=== PATIENT | female | born 1960 | race Caucasian/White ===

== ENCOUNTER 2024-04-24 15:09 | Outpatient (CLI) | payer MEDICARE, SELFPAY | END 2024-04-24 15:10 | disposition home or self-care (01) | LOC: AMB 04-26 20:41 | PROVIDERS: Visit Provider Emergency Medicine Emergency Medical Services | DX: S99.911A Unspecified injury of right ankle, initial encounter (principal); W19.XXXA Unspecified fall, initial encounter; Y92.009 Unspecified place in unspecified non-institutional (private) residence as the place of occurrence of the external cause | CPT/HCPCS: A0425; A0427 ==

== ENCOUNTER 2024-04-24 16:02 | Inpatient (IN) | payer MEDICARE, SELFPAY ==
[2024-04-24] VITALS (24 sets, daily range): BP systolic 99–128; BP diastolic 51–94; PULSE 96–112; RESP 18–28; TEMP 36.8–37.2; O2SAT 88–95; BMI 39.5
--- NOTE | 2024-04-24 16:49 | CRLHL7_ITS ---
For Patients: As a result of the Century Cures Act, medical imaging exams and procedure reports are released immediately into your electronic medical record. You may view this report before your referring provider. If you have questions, please contact your health care provider. Indication: Fall. Technique: Right ankle 3 views. Comparison: None. Findings: Bones: Alignment is normal. No fractures or bone lesions. Small posterior calcaneal enthesophyte. Joint spaces: No ankle joint effusion. The joint spaces are preserved Soft tissues: Diffuse soft tissue swelling about the ankle. Diffuse vascular calcifications. Impression: Diffuse soft tissue swelling about the ankle. No acute bony abnormality. Dictated by Jean-Claude Peoples MD @ 04/24/2024 7:46:50 PM (Electronically Signed)
--- NOTE | 2024-04-24 16:49 | CRLHL7_ITS ---
For Patients: As a result of the Century Cures Act, medical imaging exams and procedure reports are released immediately into your electronic medical record. You may view this report before your referring provider. If you have questions, please contact your health care provider. Indication: Fall. Technique: Right foot 3 views. Comparison: None. Findings: Bones: Alignment is normal. No fractures or bone lesions. Small posterior calcaneal enthesophyte. Joint spaces: Moderate degenerative changes of the navicular-medial cuboid articulation. No ankle joint effusion. Soft tissues: Dorsal foot soft tissue swelling. Diffuse vascular calcification. Impression: Dorsal foot soft tissue swelling. No acute bony abnormality. Dictated by Jean-Claude Peoples MD @ 04/24/2024 7:48:18 PM (Electronically Signed)
--- NOTE | 2024-04-24 16:49 | CRLHL7_ITS ---
For Patients: As a result of the Century Cures Act, medical imaging exams and procedure reports are released immediately into your electronic medical record. You may view this report before your referring provider. If you have questions, please contact your health care provider. INDICATION: Leg pain and swelling. TECHNIQUE: Ultrasound venous duplex lower right extremity. Compression venous exam was performed using burrell-scale, color Doppler, and spectral Doppler analysis. COMPARISON: None. FINDINGS: Deep veins: Sonographic imaging demonstrates the right common femoral, deep femoral, superficial femoral, popliteal, posterior tibial and the contralateral left common femoral veins to be fully compressible with normal color Doppler blood flow. Lack of compressibility and color Doppler flow in the peroneal veins indicative of deep venous thrombosis. Superficial veins: Greater saphenous vein is fully compressible. No popliteal cyst. IMPRESSION: DVT in the peroneal veins. Preliminary report communicated to Dr. Ochoa at 5:05 pm on 04/24/2024 by agricultural research technologist, LUIS. Dictated by Verena Sibley MD @ 04/24/2024 5:46:53 PM (Electronically Signed)
--- NOTE | 2024-04-24 17:10 | CRLHL7_ITS ---
For Patients: As a result of the Century Cures Act, medical imaging exams and procedure reports are released immediately into your electronic medical record. You may view this report before your referring provider. If you have questions, please contact your health care provider. INDICATION: Shortness of breath, right lower extremity DVT. TECHNIQUE: CT chest PE was acquired with 95 cc Isovue 370 IV contrast. COMPARISON: None. FINDINGS: Heart and vasculature: Contrast opacification of the pulmonary arterial tree is adequate. No sign of pulmonary embolism. Heart size is normal. Thoracic aorta and pulmonary artery are normal in caliber. Mitral annulus and aortic valve calcification. Coronary artery and thoracic aortic calcification. No pericardial effusion. Lungs and pleura: Moderate bilateral simple pleural effusions with associated passive atelectasis of the lower lobes, left greater than right. No pneumothorax. Small patchy ground-glass opacity in the left upper lobe centrally (). Lymph nodes/mediastinum: No mediastinal, hilar, or axillary adenopathy. Chest wall: No masses. Upper abdomen: No acute or significant findings. Bones: Multilevel thoracic spondylosis with flowing marginal osteophytes. No acute findings. IMPRESSION: 1. No pulmonary embolism. 2. Moderate bilateral simple pleural effusions with associated passive atelectasis. Difficult to exclude superimposed infection, in the correct clinical setting. 3. Small patchy ground-glass opacity ground-glass opacity in the central left upper lobe could represent additional pneumonitis. Please note that all CT scans at this facility use dose modulation, iterative reconstruction, and/or weight-based dosing when appropriate to reduce radiation dose to as low as reasonably achievable. Dictated by Jean-Claude Peoples MD @ 04/24/2024 7:33:24 PM (Electronically Signed)
--- NOTE | 2024-04-24 17:18 | CRLHL7_ITS ---
For Patients: As a result of the Century Cures Act, medical imaging exams and procedure reports are released immediately into your electronic medical record. You may view this report before your referring provider. If you have questions, please contact your health care provider. Indication : Altered mental status. Technique : CT of the brain without intravenous contrast. Comparison: None relevant available at the time of interpretation. Findings: No acute blurring of the burrell-white differentiation. There is no intracranial hemorrhage. The ventricles are proportionate to the cerebral sulci. The 4th ventricle is midline. Basal cisterns appear patent. No abnormal extra-axial fluid collection identified. Mild parenchymal volume loss. There is mild patchy periventricular hypodensity, favored to represent chronic ischemic microvascular disease. Empty expanded sella morphology. There is no intracranial mass, mass effect or midline shift identified. No depressed calvarial fracture. Impression: 1. No acute intracranial process. 2. Mild chronic ischemic microvascular disease. 3. Nonspecific empty expanded sella morphology. Please note that all CT scans at this facility use dose modulation, iterative reconstruction, and/or weight-based dosing when appropriate to reduce radiation dose to as low as reasonably achievable. Dictated by Db Moon MD @ 04/24/2024 7:26:04 PM (Electronically Signed)
[2024-04-24 17:24] LABS: HCO3 VBG 29 mmol/L (21-28); PCO2 VBG 44 mmHG (40-50); PO2 VBG < 30.1 mmHG (25-47)
[2024-04-24 17:26] LABS: Basophils Percent Auto 0.1 % (0.0-3.0); Hematocrit 38.7 % (33.0-51.0); Hemoglobin* 11.7 gm/dL (12.0-16.0); Immature Granulocytes Pct Auto 0.5 %; Lymphocytes Percent Auto 3.1 % (20-44); Mean Corpuscular HGB Conc 30 gm/dL (32-36); Mean Corpuscular Hemoglobin 23 pg (26-34); Mean Corpuscular Volume 76 fL (80-100); Monocytes Percent Auto 3.9 % (0.0-11.0); Neutrophils Percent Auto 92.4 % (42.0-72.0); Platelet Count* 208 K/uL (140-440); RDW Coefficient of Variation % 18.5 % (11.5-15.5); Red Blood Count 5.11 m/uL (4.00-5.20); White Blood Count* 17.99 K/uL (4.50-11.00)
--- NOTE | 2024-04-24 17:34 | ED.GENADULT ---
HPI - General Adult General Date Seen: 04/24/24 <Naveed Ochoa - Last Filed: 04/27/24 23:43> Chief complaint: Extremity Pain/Injury, Lower <Naveed Ochoa DO - Last Filed: 04/27/24 23:43> Stated complaint: Ankle injury <Naveed Ochoa - Last Filed: 04/27/24 23:43> Time Seen by Provider: 04/24/24 16:12 <Naveed Ochoa DO - Last Filed: 04/27/24 23:43> Source: patient <Naveed Ochoa DO - Last Filed: 04/27/24 23:43> Mode of arrival: EMS <Naveed Ochoa - Last Filed: 04/27/24 23:43> Limitations: no limitations <Naveed Ochoa - Last Filed: 04/27/24 23:43> History of Present Illness HPI narrative: Patient is a 63 year old female presenting to emergency department for multiple issues. Her main complaint and reason they called EMS because she fell and hurt her ankle. She is not sure how she fell or of the events that led up to her falling. This is 2nd time she fell in the past month with getting as super condyle left elbow fracture a month ago from a similar fall. She has also been having worsening shortness of breath now for the past few weeks it worse with the past few days. Her [id number] has been trying to get her to come to the emergency department but she has been refusing. Patient is a smoker now vapes but no history of COPD. No history of blood clots. She was post have surgery on her left elbow 2 weeks ago but they canceled the surgery so she can have her heart evaluated which they have not done yet as her appointment is scheduled for next week. She denies fevers, chills. She has most complaining about right ankle pain. She states the pain was there before the fall but now is worse. Denies chest pain, headache, weakness. Family does states she seems more confused today than her baseline. Patient is diabetic and has some neuropathy to the feet but states they are not fully numb. I spoke to her power of chief ophthalmic technician, Aida Espinosa, she states the patient had an echo that showed valvular issues and a normal stress test. Patient may need these valves replaced before she can have the elbow surgery. She also states that the patient has fallen 5 times over the past month and chronically has issues keeping her electrolytes stable. <Naveed Ochoa DO - Last Filed: 04/27/24 23:43> Related Data Allergies/adverse reactions: Allergies Allergy/AdvReac Type Severity Reaction Status Date / Time No Known Drug Allergies Allergy Verified 04/24/24 20:25 <Naveed Ochoa DO - Last Filed: 04/27/24 23:43> Review of Systems Status of ROS: Reports: 10 or more systems reviewed and unremarkable except as noted in History and below <Naveed Ochoa DO - Last Filed: 04/27/24 23:43> [facility] Medical History: Medical History (Updated 04/25/24 @ 00:11 by Margot Dukes MD) Supracondylar fracture of humerus ?S42.413A - Displaced simple supracondylar fracture without intercondylar fracture of unspecified humerus, initial encounter for closed fracture (ICD-10) Polycythemia vera ?D45 - Polycythemia vera (ICD-10) Hidradenitis suppurativa ?L73.2 - Hidradenitis suppurativa (ICD-10) Thyroid cancer ?C73 - Malignant neoplasm of thyroid gland (ICD-10) Type 2 diabetes mellitus ?E11.9 - Type 2 diabetes mellitus without complications (ICD-10) Bilateral pleural effusion ?J90 - Pleural effusion, not elsewhere classified (ICD-10) Morbid obesity ?E66.01 - Morbid (severe) obesity due to excess calories (ICD-10) Severe mitral valve stenosis ?I05.0 - Rheumatic mitral stenosis (ICD-10) Severe aortic stenosis ?I35.0 - Nonrheumatic aortic (valve) stenosis (ICD-10) <Naveed Ochoa DO - Last Filed: 04/27/24 23:43> Surgical History: Surgical History (Updated 04/24/24 @ 22:03 by Margot Dukes MD) Status post surgical removal of malignant neoplasm of skin ?Z98.890 - Other specified postprocedural states (ICD-10) History of tonsillectomy ?Z90.89 - Acquired absence of other organs (ICD-10) History of thyroidectomy ?E89.0 - Postprocedural hypothyroidism (ICD-10) S/P hip replacement ?Z96.649 - Presence of unspecified artificial hip joint (ICD-10) <Naveed Ochoa DO - Last Filed: 04/27/24 23:43> Social History: Social History What is your current living situation?: I presently have a place to live Problems where you live: no known problems Problems where you live details: NA In the past 12 months, utilities in danger of being shut off: no In past 12 months, lack of transportation kept you from medical appts, meetings, work, or getting things needed for daily living: yes In the past 12 mos, have been you worried that your food would run out before you had money to buy more?: never true In the past 12 mos, the food you bought just didn't last and you didn't have money to buy more?: never true Highest level of school completed/degree received: high school graduate Smoking Status: Former smoker Do you use any of these nicotine containing products: Vaping Products Second hand tobacco smoke exposure: No How often do you have a drink containing alcohol: never How often do you have six or more drinks on one occasion: Never AUDIT-C Alcohol total score: 0 Non-prescribed substance use: denies use Caffeine: Yes (1 Cup Coffee per day) How often does anyone, including family, friends and others, physically hurt you: never How often does anyone, including family, friends and others, insult or talk down to you: never How often does anyone, including family, friends and others, threaten you with harm: never How often does anyone, including family, friends and others, scream or curse at you: never service: No <Naveed Ochoa DO - Last Filed: 04/27/24 23:43> Exam Narrative: Exam Narrative: Const: Well-nourished, Well-developed, in moderate distress Eyes: PERRL, no conjunctival injection, and symmetrical lids HENT: Atraumatic external nose and ears. Moist mucous membranes. Neck: Symmetric, trachea midline, No thyromegaly. CVS: Tachycardic, No murmurs or gallops. Peripheral pulses 2+ and equal in all extremities RESP: Increased respiratory effort. Clear to auscultation bilaterally. GI: Nontender/Nondistended, No rebound or guarding. MSK:Extremities w/o deformity, Normal Active ROM, +1 right lower extremity pitting edema Skin: Warm, Dry. Erythemic right lower extremity with multiple lesions noted. He the grullon to the right heel that does not appear infected Neuro: Normal Muscle tone, No focal neurological deficits. Psych: Awake, Alert, & Oriented x3. Appropriate mood and affect. <Naveed Ochoa, DO - Last Filed: 04/27/24 23:43> Const: Vital Signs, click to edit/add: Vital Signs - 24 hr 04/24/24 16:15 04/24/24 16:30 04/24/24 16:46 Temperature 98.9 F Pulse Rate 112 H Pulse Rate [Right Pulse Oximeter] 109 H Respiratory Rate 20 Blood Pressure Blood Pressure [Ri ght Upper Arm] 110/75 Pulse Oximetry 88 95 88 Oxygen Delivery Me thod Room Air Nasal Cannula Room Air Oxygen Flow Rate 4 04/24/24 17:00 04/24/24 17:20 04/24/24 17:28 Temperature Pulse Rate 111 H 110 H 109 H Pulse Rate [Right Pulse Oximeter] Respiratory Rate Blood Pressure 99/79 Blood Pressure [Ri ght Upper Arm] Pulse Oximetry 95 93 93 Oxygen Delivery Me thod Nasal Cannula Nasal Cannula Nasal Cannula Oxygen Flow Rate 2 2 2 04/24/24 17:30 04/24/24 17:45 04/24/24 17:56 Temperature Pulse Rate 110 H 111 H 111 H Pulse Rate [Right Pulse Oximeter] Respiratory Rate Blood Pressure 109/51 L Blood Pressure [Ri ght Upper Arm] Pulse Oximetry 93 92 93 Oxygen Delivery Me thod Nasal Cannula Nasal Cannula Nasal Cannula Oxygen Flow Rate 2 2 2 04/24/24 18:01 04/24/24 18:15 04/24/24 19:02 Temperature Pulse Rate 111 H 110 H 110 H Pulse Rate [Right Pulse Oximeter] Respiratory Rate Blood Pressure 105/84 128/94 H Blood Pressure [Ri ght Upper Arm] Pulse Oximetry 91 93 93 Oxygen Delivery Me thod Nasal Cannula Nasal Cannula Nasal Cannula Oxygen Flow Rate 2 2 2 04/24/24 19:30 04/24/24 20:07 04/24/24 20:15 Temperature Pulse Rate 109 H 108 H Pulse Rate [Right Pulse Oximeter] Respiratory Rate 28 H Blood Pressure 107/57 L Blood Pressure [Ri ght Upper Arm] Pulse Oximetry 93 90 Oxygen Delivery Me thod Nasal Cannula Nasal Cannula Oxygen Flow Rate 2 2 04/24/24 20:15 Temperature Pulse Rate 108 H Pulse Rate [Right Pulse Oximeter] Respiratory Rate Blood Pressure Blood Pressure [Ri ght Upper Arm] Pulse Oximetry 92 Oxygen Delivery Me thod Nasal Cannula Oxygen Flow Rate 2 <Naveed Ochoa, DO - Last Filed: 04/27/24 23:43> Vital Signs, click to edit/add: Vital Signs - 24 hr 04/24/24 16:15 04/24/24 16:30 04/24/24 16:46 Temperature 98.9 F Pulse Rate 112 H Pulse Rate [Right Pulse Oximeter] 109 H Respiratory Rate 20 Blood Pressure Blood Pressure [Ri ght Upper Arm] 110/75 Pulse Oximetry 88 95 88 Oxygen Delivery Me thod Room Air Nasal Cannula Room Air Oxygen Flow Rate 4 04/24/24 17:00 04/24/24 17:20 04/24/24 17:28 Temperature Pulse Rate 111 H 110 H 109 H Pulse Rate [Right Pulse Oximeter] Respiratory Rate Blood Pressure 99/79 Blood Pressure [Ri ght Upper Arm] Pulse Oximetry 95 93 93 Oxygen Delivery Me thod Nasal Cannula Nasal Cannula Nasal Cannula Oxygen Flow Rate 2 2 2 04/24/24 17:30 04/24/24 17:45 04/24/24 17:56 Temperature Pulse Rate 110 H 111 H 111 H Pulse Rate [Right Pulse Oximeter] Respiratory Rate Blood Pressure 109/51 L Blood Pressure [Ri ght Upper Arm] Pulse Oximetry 93 92 93 Oxygen Delivery Me thod Nasal Cannula Nasal Cannula Nasal Cannula Oxygen Flow Rate 2 2 2 04/24/24 18:01 04/24/24 18:15 04/24/24 19:02 Temperature Pulse Rate 111 H 110 H 110 H Pulse Rate [Right Pulse Oximeter] Respiratory Rate Blood Pressure 105/84 128/94 H Blood Pressure [Ri ght Upper Arm] Pulse Oximetry 91 93 93 Oxygen Delivery Me thod Nasal Cannula Nasal Cannula Nasal Cannula Oxygen Flow Rate 2 2 2 04/24/24 19:30 04/24/24 20:07 04/24/24 20:15 Temperature Pulse Rate 109 H 108 H Pulse Rate [Right Pulse Oximeter] Respiratory Rate 28 H Blood Pressure 107/57 L Blood Pressure [Ri ght Upper Arm] Pulse Oximetry 93 90 Oxygen Delivery Me thod Nasal Cannula Nasal Cannula Oxygen Flow Rate 2 2 04/24/24 20:15 Temperature Pulse Rate 108 H Pulse Rate [Right Pulse Oximeter] Respiratory Rate Blood Pressure Blood Pressure [Ri ght Upper Arm] Pulse Oximetry 92 Oxygen Delivery Me thod Nasal Cannula Oxygen Flow Rate 2 <Mark Christianson MD - Last Filed: 04/24/24 20:40> Course Reevaluation(s) Reevaluation #1: Sammy - Received this patient at change of shift pending repeat troponin. Accepted for admission pending this result. Being admitted with respiratory failure. Concern also sepsis. Initial troponin I is 0.86 thought to be somewhat strain related with repeat then at 0.94. I would consider this essentially flat. Discussed with hospitalist for admission. Will treat more as potential sepsis. Discontinuing Rocephin pending blood cultures and initiating Zosyn <Mark Christianson MD - Last Filed: 04/24/24 20:40> Vital Signs Vital signs: Initial Vital Signs Temperature 98.9 F 04/24/24 16:15 Temperature Source Temporal Artery Scan 04/24/24 16:15 Pulse Rate 109 H 04/24/24 16:15 Respiratory Rate 20 04/24/24 16:15 Blood Pressure 110/75 04/24/24 16:15 Blood Pressure Mean 86 04/24/24 16:15 Blood Pressure Position Supine 04/24/24 16:15 Pulse Oximetry 88 04/24/24 16:15 Oxygen Delivery Method Room Air 04/24/24 16:15 Vital Signs Temperature 98.9 F 04/24/24 16:15 Pulse Rate 109 H 04/24/24 16:15 Respiratory Rate 20 04/24/24 16:15 Blood Pressure 110/75 04/24/24 16:15 Pulse Oximetry 88 04/24/24 16:15 Oxygen Delivery Method Room Air 04/24/24 16:15 Temperature 98.0 F 04/25/24 07:20 Pulse Rate 87 04/25/24 07:55 Respiratory Rate 18 04/25/24 07:36 Blood Pressure 126/54 L 04/25/24 08:15 Pulse Oximetry 94 04/25/24 07:36 Oxygen Delivery Method Nasal Cannula 04/25/24 07:36 Oxygen Flow Rate 2 04/25/24 07:36 <Naveed Ochoa DO - Last Filed: 04/27/24 23:43> Initial Vital Signs Temperature 98.9 F 04/24/24 16:15 Temperature Source Temporal Artery Scan 04/24/24 16:15 Pulse Rate 109 H 04/24/24 16:15 Respiratory Rate 20 04/24/24 16:15 Blood Pressure 110/75 04/24/24 16:15 Blood Pressure Mean 86 04/24/24 16:15 Blood Pressure Position Supine 04/24/24 16:15 Pulse Oximetry 88 04/24/24 16:15 Oxygen Delivery Method Room Air 04/24/24 16:15 Vital Signs Temperature 98.9 F 04/24/24 16:15 Pulse Rate 109 H 04/24/24 16:15 Respiratory Rate 20 04/24/24 16:15 Blood Pressure 110/75 04/24/24 16:15 Pulse Oximetry 88 04/24/24 16:15 Oxygen Delivery Method Room Air 04/24/24 16:15 Temperature 98.0 F 04/25/24 07:20 Pulse Rate 87 04/25/24 07:55 Respiratory Rate 18 04/25/24 07:36 Blood Pressure 126/54 L 04/25/24 08:15 Pulse Oximetry 94 04/25/24 07:36 Oxygen Delivery Method Nasal Cannula 04/25/24 07:36 Oxygen Flow Rate 2 04/25/24 07:36 <Mark Christianson MD - Last Filed: 04/24/24 20:40> Medications Administered Medications: Discontinued Medications Generic Name Dose Route Start Last Admin Trade Name Lara PRN Reason Stop Dose Admin Acetaminophen 975 mg 04/24/24 21:30 04/25/24 03:22 Acetaminophen 325 Mg Tablet PO 975 mg Q6H TOMI Administration Albuterol/Ipratropium 1 neb 04/24/24 22:00 04/25/24 03:38 Iprat-Albut 0.5-2.5 Mg/3 Ml Neb IH Not Given Q6H TOMI Sodium Chloride 1,000 mls @ 1,000 mls/hr 04/24/24 19:45 04/24/24 20:12 0.9 % Sodium Chloride 1000 Ml IV 04/24/24 20:44 1,000 mls/hr .Q1H TOMI Administration Piperacillin Sod/Tazobactam 100 mls @ 200 mls/hr 04/24/24 21:00 04/25/24 04:17 Sod 3.375 gm/ Sodium Chloride IVPB Infused Q6H TOMI Infusion Azithromycin 500 mg/ Sodium 255 mls @ 255 mls/hr 04/24/24 21:30 04/25/24 01:54 Chloride IVPB Infused Q24H TOMI Infusion Sodium Chloride 1,000 mls @ 125 mls/hr 04/24/24 21:03 04/25/24 08:06 0.9 % Sodium Chloride 1000 Ml IV 125 mls/hr .Q8H TOMI Administration Magnesium Sulfate 2 gm in 50 mls @ 25 mls/hr 04/24/24 21:03 04/24/24 22:03 Magnesium Iv IVPB 04/24/24 23:02 25 mls/hr ONCE ONE Administration Norepinephrine/Dextrose 4,000 mcg in 250 mls @ 44.565 mls/hr 04/25/24 08:01 04/25/24 08:13 Norepinephrine Infusion IV 0.1 mcg/kg/min CONT PRN 44.57 mls/hr Administration Protocol 0.1 MCG/KG/MIN Insulin Aspart 0 unit 04/24/24 21:03 04/25/24 08:03 Insulin Aspart 100 Unit/Ml SUBCUT Not Given ACHS [facility] Protocol Metoprolol Tartrate 2.5 mg 04/24/24 22:30 04/25/24 04:01 Metoprolol Tartrate 1 Mg/Ml Inj IVP Not Given Q6H TOMI Oxycodone HCl 5 mg 04/24/24 20:40 04/24/24 23:07 Oxycodone 5 Mg Tablet PO 5 mg Q4H PRN Administration pain, moderate 5-7 Rivaroxaban 15 mg 04/24/24 21:03 04/24/24 22:14 Rivaroxaban 10 Mg Tablet PO 05/15/24 09:01 15 mg BID TOMI Administration Sodium Chloride 5 ml 04/24/24 21:03 04/24/24 22:17 Sodium Chloride 0.9 % (Flush) 10 Ml Syringe IVF 5 ml BID TOMI Administration <Naveed Ochoa, - Last Filed: 04/27/24 23:43> Discontinued Medications Generic Name Dose Route Start Last Admin Trade Name Freq PRN Reason Stop Dose Admin Acetaminophen 975 mg 04/24/24 21:30 04/25/24 03:22 Acetaminophen 325 Mg Tablet PO 975 mg Q6H TOMI Administration Albuterol/Ipratropium 1 neb 04/24/24 22:00 04/25/24 03:38 Iprat-Albut 0.5-2.5 Mg/3 Ml Neb IH Not Given Q6H TOMI Sodium Chloride 1,000 mls @ 1,000 mls/hr 04/24/24 19:45 04/24/24 20:12 0.9 % Sodium Chloride 1000 Ml IV 04/24/24 20:44 1,000 mls/hr .Q1H TOMI Administration Piperacillin Sod/Tazobactam 100 mls @ 200 mls/hr 04/24/24 21:00 04/25/24 04:17 Sod 3.375 gm/ Sodium Chloride IVPB Infused Q6H TOMI Infusion Azithromycin 500 mg/ Sodium 255 mls @ 255 mls/hr 04/24/24 21:30 04/25/24 01:54 Chloride IVPB Infused Q24H TOMI Infusion Sodium Chloride 1,000 mls @ 125 mls/hr 04/24/24 21:03 04/25/24 08:06 0.9 % Sodium Chloride 1000 Ml IV 125 mls/hr .Q8H TOMI Administration Magnesium Sulfate 2 gm in 50 mls @ 25 mls/hr 04/24/24 21:03 04/24/24 22:03 Magnesium Iv IVPB 04/24/24 23:02 25 mls/hr ONCE ONE Administration Norepinephrine/Dextrose 4,000 mcg in 250 mls @ 44.565 mls/hr 04/25/24 08:01 04/25/24 08:13 Norepinephrine Infusion IV 0.1 mcg/kg/min CONT PRN 44.57 mls/hr Administration Protocol 0.1 MCG/KG/MIN Insulin Aspart 0 unit 04/24/24 21:03 04/25/24 08:03 Insulin Aspart 100 Unit/Ml SUBCUT Not Given ACHS [facility] Protocol Metoprolol Tartrate 2.5 mg 04/24/24 22:30 04/25/24 04:01 Metoprolol Tartrate 1 Mg/Ml Inj IVP Not Given Q6H TOMI Oxycodone HCl 5 mg 04/24/24 20:40 04/24/24 23:07 Oxycodone 5 Mg Tablet PO 5 mg Q4H PRN Administration pain, moderate 5-7 Rivaroxaban 15 mg 04/24/24 21:03 04/24/24 22:14 Rivaroxaban 10 Mg Tablet PO 05/15/24 09:01 15 mg BID TOMI Administration Sodium Chloride 5 ml 04/24/24 21:03 04/24/24 22:17 Sodium Chloride 0.9 % (Flush) 10 Ml Syringe IVF 5 ml BID TOMI Administration <Mark Christianson MD - Last Filed: 04/24/24 20:40> Medical Decision Making MDM Narrative Medical decision making narrative: Patient is a 63-year-old female presenting to the emergency department issue for ankle pain but she is rather complex for multiple other reasons. She is hypoxic on room air which is abnormal for her. She is also having swelling and erythema to the right lower extremity and is warm to the touch. There is concerned for either a blood clot or cellulitis at this time. Considering this and hypoxia I am also concerned about a PE. I was able to review her charts and she had a stress test done on 04/14/2024 that shows a normal stress test. She had an echo done on 04/15/24 that showed an EF of 65-70%, severe left atrial enlargement, moderate to severe mitral valve stenosis, severe aortic stenosis. I also do an EKG, troponin, D-dimer, COVID/flu/RSV, magnesium, BNP, VBG, CBC, CMP. As she is relatively tachycardic by will also do a lactate and blood cultures. Patient's lactate came back at 3.0. This could be signs of infection but could also be related to her hypoxia. Will monitor. Ultrasound the right lower extremity returned and shows a DVT in the peroneal veins. I am still concerned about a PE and I will do a CTA. D-dimer came back elevated as expected. VBG showed no concerning abnormalities and COVID/flu/RSV showed no concerning abnormalities. CBC returned with a white count of 17.99. This could be a stress reaction or could be from an infection. I am unsure where this infection be right now but possibility includes pneumonia. I am hesitant to give her fluids at this time as her blood pressures are stable and I am concerned she has a PE and I will do not want to put her into volume overload worsening her shortness of breath. Will wait for fluid decision until CTA is done and read. CMP shows no concerning abnormalities. Bilirubin slightly elevated 1.8. BNP is elevated at 8400. Her troponin is 0.87. She is not having any chest pain and not see signs of STEMI on her EKG. Seems unlikely that this is any kind of blockage in the heart as she does had a normal stress test a week ago. Most likely this is demand ischemia from her hypoxia. CT scan of the head returned showing no concerning abnormalities. CTA of the chest she shows bilateral simple small pleural effusions and associated atelectasis and a possible pneumonitis. No obvious signs of infection. No signs of a blood clot or heart strain. At this time now I will give her L of fluids. I am still hesitant to give her the fall 30 mL per kilos of fluid per sepsis protocol as is she does have that aortic and mitral valve stenosis and already has fluid on her heart. Rocephin was given for possible pneumonia. She also might infected from cellulitis. <Naveed Ochoa, DO - Last Filed: 04/27/24 23:43> Lab Data Labs: Lab Results 04/24/24 04/24/24 04/24/24 Range/Units 16:49 17:19 19:35 WBC 17.99 H (4.50-11.00) K/uL RBC 5.11 (4.00-5.20) m/uL Hgb 11.7 L (12.0-16.0) gm/dL Hct 38.7 (33.0-51.0) % MCV 76 L (80-100) fL MCH 23 L (26-34) pg MCHC 30 L (32-36) gm/dL RDW Coeff of Jorge Luis 18.5 H (11.5-15.5) % Plt Count 208 (140-440) K/uL Neut % (Auto) 92.4 H (42.0-72.0) % Lymph % (Auto) 3.1 L (20-44) % Pershing % (Auto) 3.9 (0.0-11.0) % Eos % (Auto) 0.0 (0.0-7.0) % Baso % (Auto) 0.1 (0.0-3.0) % Neut # (Auto) 16.60 H (1.7-7.0) K/uL Lymph # (Auto) 0.60 L (0.90-2.90) K/uL Pershing # (Auto) 0.70 (0.00-0.90) K/UL Eos # (Auto) 0.00 (0.00-0.50) K/uL Baso # (Auto) 0.00 (0.00-0.30) K/uL Abs Immat Gran (auto) 0.10 (0.00-0.30) K/uL Imm/Tot Granulo (auto) 0.5 % INR 1.14 H (0.91-1.10) D-Dimer Quant (PE/DVT) 2.60 H (0.00-0.50) ug/ml VBG pH 7.420 (7.32-7.43) VBG pCO2 44 (40-50) mmHG VBG pO2 < 30.1 (25-47) mmHG VBG HCO3 29 H (21-28) mmol/L Sodium 131 L (135-149) mmol/L Potassium 4.4 (3.6-5.1) mmol/L Chloride 95 L (96-114) mmol/L Carbon Dioxide 29 (20-32) mmol/L Anion Gap 7 (7-15) mEq/L BUN 26 (7-30) mg/dL Creatinine 1.1 (0.5-1.5) mg/dL Estimated GFR 56 ml/min Glucose 236 H (60-115) mg/dL Hemoglobin A1c 8.8 H (0-5.6) % Lactate 3.0 H 2.6 H (0.5-1.9) mmol/L Calcium 8.9 (8.4-10.6) mg/dL Magnesium 1.5 (1.5-2.6) mg/dL Iron 29 L (37-170) ug/dL TIBC 384 (265-497) ug/dL % Saturation 8 L (20-50) % Total Bilirubin 1.8 H (0.1-1.5) mg/dL AST 44 H (12-35) U/L ALT 27 (4-35) U/L Alkaline Phosphatase 114 (40-150) U/L Troponin I 0.87 H* (0.01-0.04) ng/mL C-Reactive Protein 20.8 H (0.5-1.0) mg/dL NT-Pro-B Natriuret Pep 8400 pg/mL Total Protein 8.0 (6.0-8.3) g/dL Albumin 4.0 (3.3-5.0) g/dL TSH 16.600 H (0.270-4.20) uIU/mL Free T4 0.44 L (0.70-1.85) ng/dL Prolactin Baseline 7.0 (2.8-29.2) ng/mL Urine Color (Yellow) Urine Appearance (Clear) Urine pH (5.0-8.5) Ur Specific [place] (1.000-1.030) Urine Protein (Negative) Urine Glucose (UA) (Negative) Urine Ketones (Negative) Urine Blood (Negative) Urine Nitrite (Negative) Urine Bilirubin (Negative) Urine Urobilinogen (0.2-1.0) Ur Leukocyte Esterase (Negative) Urine RBC (0-2) Urine WBC (0-5) Ur Squamous Epith Cells (None-Few) Urine Bacteria (None) SARS-CoV-2 (PCR) Negative SARS-CoV-2 (Negative) Influenza Type A (PCR) Negative PCR FLU A (Negative) Influenza Type B (PCR) Negative PCR FLU B (Negative) RSV (PCR) Negative PCR RSV (Negative) Lab Acknowledgement 04/24/24 04/24/24 04/24/24 Range/Units 19:43 20:15 20:28 WBC (4.50-11.00) K/uL RBC (4.00-5.20) m/uL Hgb (12.0-16.0) gm/dL Hct (33.0-51.0) % MCV (80-100) fL MCH (26-34) pg MCHC (32-36) gm/dL RDW Coeff of Jorge Luis (11.5-15.5) % Plt Count (140-440) K/uL Neut % (Auto) (42.0-72.0) % Lymph % (Auto) (20-44) % Pershing % (Auto) (0.0-11.0) % Eos % (Auto) (0.0-7.0) % Baso % (Auto) (0.0-3.0) % Neut # (Auto) (1.7-7.0) K/uL Lymph # (Auto) (0.90-2.90) K/uL Pershing # (Auto) (0.00-0.90) K/UL Eos # (Auto) (0.00-0.50) K/uL Baso # (Auto) (0.00-0.30) K/uL Abs Immat Gran (auto) (0.00-0.30) K/uL Imm/Tot Granulo (auto) % INR (0.91-1.10) D-Dimer Quant (PE/DVT) (0.00-0.50) ug/ml VBG pH (7.32-7.43) VBG pCO2 (40-50) mmHG VBG pO2 (25-47) mmHG VBG HCO3 (21-28) mmol/L Sodium (135-149) mmol/L Potassium (3.6-5.1) mmol/L Chloride (96-114) mmol/L Carbon Dioxide (20-32) mmol/L Anion Gap (7-15) mEq/L BUN (7-30) mg/dL Creatinine (0.5-1.5) mg/dL Estimated GFR ml/min Glucose (60-115) mg/dL Hemoglobin A1c (0-5.6) % Lactate (0.5-1.9) mmol/L Calcium (8.4-10.6) mg/dL Magnesium (1.5-2.6) mg/dL Iron (37-170) ug/dL TIBC (265-497) ug/dL % Saturation (20-50) % Total Bilirubin (0.1-1.5) mg/dL AST (12-35) U/L ALT (4-35) U/L Alkaline Phosphatase (40-150) U/L Troponin I 0.94 H* (0.01-0.04) ng/mL C-Reactive Protein (0.5-1.0) mg/dL NT-Pro-B Natriuret Pep pg/mL Total Protein (6.0-8.3) g/dL Albumin (3.3-5.0) g/dL TSH (0.270-4.20) uIU/mL Free T4 (0.70-1.85) ng/dL Prolactin Baseline (2.8-29.2) ng/mL Urine Color Yellow (Yellow) Urine Appearance Clear (Clear) Urine pH 5.5 (5.0-8.5) Ur Specific [place] 1.020 (1.000-1.030) Urine Protein 2+ A (Negative) Urine Glucose (UA) Negative (Negative) Urine Ketones Negative (Negative) Urine Blood 2+ A (Negative) Urine Nitrite Negative (Negative) Urine Bilirubin Negative (Negative) Urine Urobilinogen 1.0 (0.2-1.0) Ur Leukocyte Esterase Negative (Negative) Urine RBC 0-2 (0-2) Urine WBC 0-2 (0-5) Ur Squamous Epith Cells Few (None-Few) Urine Bacteria Few A (None) SARS-CoV-2 (PCR) (Negative) Influenza Type A (PCR) (Negative) Influenza Type B (PCR) (Negative) RSV (PCR) (Negative) Lab Acknowledgement Test Added <Naveed Ochoa, - Last Filed: 04/27/24 23:43> Lab Results 04/24/24 04/24/24 04/24/24 Range/Units 16:49 17:19 19:35 WBC 17.99 H (4.50-11.00) K/uL RBC 5.11 (4.00-5.20) m/uL Hgb 11.7 L (12.0-16.0) gm/dL Hct 38.7 (33.0-51.0) % MCV 76 L (80-100) fL MCH 23 L (26-34) pg MCHC 30 L (32-36) gm/dL RDW Coeff of Jorge Luis 18.5 H (11.5-15.5) % Plt Count 208 (140-440) K/uL Neut % (Auto) 92.4 H (42.0-72.0) % Lymph % (Auto) 3.1 L (20-44) % Pershing % (Auto) 3.9 (0.0-11.0) % Eos % (Auto) 0.0 (0.0-7.0) % Baso % (Auto) 0.1 (0.0-3.0) % Neut # (Auto) 16.60 H (1.7-7.0) K/uL Lymph # (Auto) 0.60 L (0.90-2.90) K/uL Pershing # (Auto) 0.70 (0.00-0.90) K/UL Eos # (Auto) 0.00 (0.00-0.50) K/uL Baso # (Auto) 0.00 (0.00-0.30) K/uL Abs Immat Gran (auto) 0.10 (0.00-0.30) K/uL Imm/Tot Granulo (auto) 0.5 % INR 1.14 H (0.91-1.10) D-Dimer Quant (PE/DVT) 2.60 H (0.00-0.50) ug/ml VBG pH 7.420 (7.32-7.43) VBG pCO2 44 (40-50) mmHG VBG pO2 < 30.1 (25-47) mmHG VBG HCO3 29 H (21-28) mmol/L Sodium 131 L (135-149) mmol/L Potassium 4.4 (3.6-5.1) mmol/L Chloride 95 L (96-114) mmol/L Carbon Dioxide 29 (20-32) mmol/L Anion Gap 7 (7-15) mEq/L BUN 26 (7-30) mg/dL Creatinine 1.1 (0.5-1.5) mg/dL Estimated GFR 56 ml/min Glucose 236 H (60-115) mg/dL Hemoglobin A1c 8.8 H (0-5.6) % Lactate 3.0 H 2.6 H (0.5-1.9) mmol/L Calcium 8.9 (8.4-10.6) mg/dL Magnesium 1.5 (1.5-2.6) mg/dL Iron 29 L (37-170) ug/dL TIBC 384 (265-497) ug/dL % Saturation 8 L (20-50) % Total Bilirubin 1.8 H (0.1-1.5) mg/dL AST 44 H (12-35) U/L ALT 27 (4-35) U/L Alkaline Phosphatase 114 (40-150) U/L Troponin I 0.87 H* (0.01-0.04) ng/mL C-Reactive Protein 20.8 H (0.5-1.0) mg/dL NT-Pro-B Natriuret Pep 8400 pg/mL Total Protein 8.0 (6.0-8.3) g/dL Albumin 4.0 (3.3-5.0) g/dL TSH 16.600 H (0.270-4.20) uIU/mL Free T4 0.44 L (0.70-1.85) ng/dL Prolactin Baseline 7.0 (2.8-29.2) ng/mL Urine Color (Yellow) Urine Appearance (Clear) Urine pH (5.0-8.5) Ur Specific [place] (1.000-1.030) Urine Protein (Negative) Urine Glucose (UA) (Negative) Urine Ketones (Negative) Urine Blood (Negative) Urine Nitrite (Negative) Urine Bilirubin (Negative) Urine Urobilinogen (0.2-1.0) Ur Leukocyte Esterase (Negative) Urine RBC (0-2) Urine WBC (0-5) Ur Squamous Epith Cells (None-Few) Urine Bacteria (None) SARS-CoV-2 (PCR) Negative SARS-CoV-2 (Negative) Influenza Type A (PCR) Negative PCR FLU A (Negative) Influenza Type B (PCR) Negative PCR FLU B (Negative) RSV (PCR) Negative PCR RSV (Negative) Lab Acknowledgement 04/24/24 04/24/24 04/24/24 Range/Units 19:43 20:15 20:28 WBC (4.50-11.00) K/uL RBC (4.00-5.20) m/uL Hgb (12.0-16.0) gm/dL Hct (33.0-51.0) % MCV (80-100) fL MCH (26-34) pg MCHC (32-36) gm/dL RDW Coeff of Jorge Luis (11.5-15.5) % Plt Count (140-440) K/uL Neut % (Auto) (42.0-72.0) % Lymph % (Auto) (20-44) % Pershing % (Auto) (0.0-11.0) % Eos % (Auto) (0.0-7.0) % Baso % (Auto) (0.0-3.0) % Neut # (Auto) (1.7-7.0) K/uL Lymph # (Auto) (0.90-2.90) K/uL Pershing # (Auto) (0.00-0.90) K/UL Eos # (Auto) (0.00-0.50) K/uL Baso # (Auto) (0.00-0.30) K/uL Abs Immat Gran (auto) (0.00-0.30) K/uL Imm/Tot Granulo (auto) % INR (0.91-1.10) D-Dimer Quant (PE/DVT) (0.00-0.50) ug/ml VBG pH (7.32-7.43) VBG pCO2 (40-50) mmHG VBG pO2 (25-47) mmHG VBG HCO3 (21-28) mmol/L Sodium (135-149) mmol/L Potassium (3.6-5.1) mmol/L Chloride (96-114) mmol/L Carbon Dioxide (20-32) mmol/L Anion Gap (7-15) mEq/L BUN (7-30) mg/dL Creatinine (0.5-1.5) mg/dL Estimated GFR ml/min Glucose (60-115) mg/dL Hemoglobin A1c (0-5.6) % Lactate (0.5-1.9) mmol/L Calcium (8.4-10.6) mg/dL Magnesium (1.5-2.6) mg/dL Iron (37-170) ug/dL TIBC (265-497) ug/dL % Saturation (20-50) % Total Bilirubin (0.1-1.5) mg/dL AST (12-35) U/L ALT (4-35) U/L Alkaline Phosphatase (40-150) U/L Troponin I 0.94 H* (0.01-0.04) ng/mL C-Reactive Protein (0.5-1.0) mg/dL NT-Pro-B Natriuret Pep pg/mL Total Protein (6.0-8.3) g/dL Albumin (3.3-5.0) g/dL TSH (0.270-4.20) uIU/mL Free T4 (0.70-1.85) ng/dL Prolactin Baseline (2.8-29.2) ng/mL Urine Color Yellow (Yellow) Urine Appearance Clear (Clear) Urine pH 5.5 (5.0-8.5) Ur Specific [place] 1.020 (1.000-1.030) Urine Protein 2+ A (Negative) Urine Glucose (UA) Negative (Negative) Urine Ketones Negative (Negative) Urine Blood 2+ A (Negative) Urine Nitrite Negative (Negative) Urine Bilirubin Negative (Negative) Urine Urobilinogen 1.0 (0.2-1.0) Ur Leukocyte Esterase Negative (Negative) Urine RBC 0-2 (0-2) Urine WBC 0-2 (0-5) Ur Squamous Epith Cells Few (None-Few) Urine Bacteria Few A (None) SARS-CoV-2 (PCR) (Negative) Influenza Type A (PCR) (Negative) Influenza Type B (PCR) (Negative) RSV (PCR) (Negative) Lab Acknowledgement Test Added <Mark Christianson MD - Last Filed: 04/24/24 20:40> Imaging Data Venous US: Attestation: I have reviewed the pertinent imaging results. <Naveed Ochoa DO - Last Filed: 04/27/24 23:43> Radiologist's impression: DVT in the peroneal veins. Preliminary report communicated to Dr. Ochoa at 5:05 pm on 04/24/2024 by eeg technologist, CK. Dictated by Verena Sibley MD @ 04/24/2024 5:46:53 PM <Naveed Ochoa DO - Last Filed: 04/27/24 23:43> CT scan had: Attestation: I have reviewed the pertinent imaging results. <Naveed Ochoa DO - Last Filed: 04/27/24 23:43> Radiologist's impression: 1. No acute intracranial process. 2. Mild chronic ischemic microvascular disease. 3. Nonspecific empty expanded sella morphology. Please note that all CT scans at this facility use dose modulation, iterative reconstruction, and/or weight-based dosing when appropriate to reduce radiation dose to as low as reasonably achievable. Dictated by Db Moon MD @ 04/24/2024 7:26:04 PM <Naveed Ochoa DO - Last Filed: 04/27/24 23:43> CTA chest: Attestation: I have reviewed the pertinent imaging results. <Naveed Ochoa DO - Last Filed: 04/27/24 23:43> Radiologist's impression: 1. No pulmonary embolism. 2. Moderate bilateral simple pleural effusions with associated passive atelectasis. Difficult to exclude superimposed infection, in the correct clinical setting. 3. Small patchy ground-glass opacity ground-glass opacity in the central left upper lobe could represent additional pneumonitis. Please note that all CT scans at this facility use dose modulation, iterative reconstruction, and/or weight-based dosing when appropriate to reduce radiation dose to as low as reasonably achievable. Dictated by Jean-Claude Peoples MD @ 04/24/2024 7:33:24 PM <Naveed Ochoa DO - Last Filed: 04/27/24 23:43> X-ray right ankle: Attestation: I have reviewed the pertinent imaging results. <Naveed Ochoa DO - Last Filed: 04/27/24 23:43> Radiologist's impression: Diffuse soft tissue swelling about the ankle. No acute bony abnormality. Dictated by Jean-Claude Peoples MD @ 04/24/2024 7:46:50 PM <Naveed Ochoa DO - Last Filed: 04/27/24 23:43> X-ray right foot: Attestation: I have reviewed the pertinent imaging results. <Naveed Ochoa DO - Last Filed: 04/27/24 23:43> Radiologist's impression: Dorsal foot soft tissue swelling. No acute bony abnormality. Dictated by Jean-Claude Peoples MD @ 04/24/2024 7:48:18 PM <Naveed Ochoa DO - Last Filed: 04/27/24 23:43> Discharge Plan Discharge Clinical Impression: Hypoxia, Altered mental status, DVT (deep venous thrombosis), Pleural effusion, Sepsis, Cellulitis <Naveed Ochoa DO - Last Filed: 04/27/24 23:43> Patient Disposition: Admitted As Observation <Naveed Ochoa DO - Last Filed: 04/27/24 23:43>
[2024-04-24 17:42] LABS: Slide Review Reflex No
[2024-04-24 17:48] LABS: PCR FLU A Negative PCR FLU A (Negative); PCR FLU B Negative PCR FLU B (Negative); PCR RSV Negative PCR RSV (Negative); SARS PCR* Negative SARS-CoV-2 (Negative)
[2024-04-24 17:53] LABS: Chloride* 95 mmol/L (96-114); Potassium* 4.4 mmol/L (3.6-5.1); Sodium* 131 mmol/L (135-149)
[2024-04-24 17:55] LABS: Anion Gap 7 mEq/L (7-15); Aspartate Amino Transferase* 44 U/L (12-35); Bilirubin Total* 1.8 mg/dL (0.1-1.5); Carbon Dioxide* 29 mmol/L (20-32); Creatinine* 1.1 mg/dL (0.5-1.5); Estimated Glomerular Filt Rate 56 ml/min
[2024-04-24 17:56] LABS: Alanine Aminotransferase* 27 U/L (4-35); Alkaline Phosphatase* 114 U/L (40-150); Blood Urea Nitrogen* 26 mg/dL (7-30); Calcium* 8.9 mg/dL (8.4-10.6); Glucose* 236 mg/dL (60-115); Magnesium* 1.5 mg/dL (1.5-2.6)
[2024-04-24 18:09] LABS: NT Pro B Type NatriureticPept* 8400 pg/mL; Troponin I* 0.87 ng/mL (0.01-0.04)
[2024-04-24 19:51] LABS: Lactate Sepsis 2 Hour 2.6 mmol/L (0.5-1.9)
[2024-04-24] MEDS: 0.9 % SODIUM CHLORIDE 1000 ml 1,000 ML IV (20:12)
--- NOTE | 2024-04-24 20:17 | P.IMHP_ITS ---
Hospitalist- H&P: HPI History of Present Illness Date Seen: 04/25/24 Chief complaint: Ankle injury Narrative: ADMISSION HISTORY AND PHYSICAL - HOSPITALIST Chief Complaint: My MIL fell from bed; I found her on the floor HPI: 63 y.o WF with a recent hx of a supracondylar fx of the left elbow and recent dx of severe was found down by family this afternoon. She was likely on the floor between 1-3 hours. She had been in bed for the two days [employer]. Nonspecific weakness and fatigue. No fever, cough. The son and DIL she lives with, kept urging her to go to the hospital and she refused. She apparently has had low potassium in the past and they thought this was the issue. She has baseline cognitive decline but she seemed more delirious in the last two days. No cough, fever. Just weak. No complaint of leg pain until EMS arrived this afternoon. She was hypoxic (EMS 78-85%) and was yelling out b/c of right ankle pain. She fell in early march (03/24/24) and family tells me it was for low potassium and she broke her left elbow. [facility] planned an ORIF but apparently anesthesia cancelled surgery related to a new heart murmur. subsequently seen by cards: echo shows severe , severe MS. severe elevation in filling pressures. However she passed her stress exam. She needs a TAVR. ortho decided the healing was good enough and ORIF was cancelled (according to son). valve clinic appt is 04/28/24 ER COURSE: imaging, fluid bolus, labs. Hosp med asked to admit for sepsis, CAP, acute DVT with weakness/AMS CODE STATUS: DNR/DNI - spoke with son and DIL and they were clear about her wishes; no transfer/no intubation/no CPR. EMERGENCY CONTACT PLAN: [facility] Rel To Pat Son Cell I've updated the PFSH, medications and allergies in the Expanse tabs. INVESTIGATIONS: LABS/MICRO/ECG/IMAGING vitals concerning for tachycardia; soft blood pressures, tachypneic. triggered sepsis flags. no fever. 2L NC02 to keep sats 90-92% labs: elevated WBC 18, 92% neutrophils microcytic anemia, 11.7 normal platelets INR pending D-dimer 2.6 Blood gas stable 7.4, no elevation in her CO2. Mildly hyponatremic. Normal potassium. Normal renal function Glucose 236. A1c pending. Lactate went from 3--2.6--3 with almost 1 L normal saline infused Low normal magnesium. Iron panel pending. Total bili 1.8, AST 44. Normal ALT and alk-phos Total troponin 0.87, 0.94, two hours apart CK 800 c/w mild Rhabdo CRP elevated, procalcitonin, TSH elevated urine, 2+ blood, 2+ protein. Negative ketones, negative nitrite, negative leukocyte esterase Negative respiratory quad screen CTA Negative PE, moderate simple bilateral effusions cannot rule out infection. Small patchy ground-glass opacities in the central upper left lobe. Head CT reviewed. No acute intracranial process. Ischemic microvascular disease present. Nonspecific expanded sella morphology. Right-sided DVT noted on duplex ultrasound Foot ankle x-rays just show us that there is some edema 2 blood cultures pending Sinus tachycardia on ECG REVIEW OF SYSTEMS: 12-point ROS completed with patient and negative unless otherwise stated in HPI or below. PHYSICAL EXAM: CONSTITUTIONAL: obtunded. didn't know where she was other than hospital - sorta answers with 1 word; falls asleep easily. can not stand. barely can move right leg. I had to call son for further info VITAL SIGNS: see record. HEENT: Normocephalic, atraumatic. PERRL, EOMI, conjunctivae pink, no scleral icterus. Ears and nose externally normal. Pharynx normal. Pale. dry mucus membranes. NECK: JVD difficult to assess; normal CHEST: Clear to auscultation bilaterally - poor inspiration HEART: Diastolic murmur; harsh/blowing across precordium - 1+ edema MUSCULOSKELETAL: cast on left UE; right LE is warm; red. NEURO: Cranial nerves intact. Grossly intact. No asymmetric findings. SKIN: No rashes, petechiae, concerning changes PSYCHIATRIC: obtunded/difficult to assess. ADMIT TO MEDSURG: FLOOR CARE DVT: xarelto 15mg BID (initial treatment plan for DVT) GI: PO intake Time spent: Today I spent 75 minutes seeing the patient, discussing the patient with ER staff, reviewing Expanse and EPIC notes/diagnostics, discussing the care plan with our care time that includes social work, PT/OT, pharmacy, RT, prison and documenting my impressions and plan in the medical record. [facility] Medical History (Updated 04/25/24 @ 00:11 by Margot Dukes MD) Supracondylar fracture of humerus ?S42.413A - Displaced simple supracondylar fracture without intercondylar fracture of unspecified humerus, initial encounter for closed fracture (ICD- 10) Polycythemia vera ?D45 - Polycythemia vera (ICD-10) Hidradenitis suppurativa ?L73.2 - Hidradenitis suppurativa (ICD-10) Thyroid cancer ?C73 - Malignant neoplasm of thyroid gland (ICD-10) Type 2 diabetes mellitus ?E11.9 - Type 2 diabetes mellitus without complications (ICD-10) Bilateral pleural effusion ?J90 - Pleural effusion, not elsewhere classified (ICD-10) Morbid obesity ?E66.01 - Morbid (severe) obesity due to excess calories (ICD-10) Severe mitral valve stenosis ?I05.0 - Rheumatic mitral stenosis (ICD-10) Severe aortic stenosis ?I35.0 - Nonrheumatic aortic (valve) stenosis (ICD-10) Surgical History (Updated 04/24/24 @ 22:03 by Margot Dukes MD) Status post surgical removal of malignant neoplasm of skin ?Z98.890 - Other specified postprocedural states (ICD-10) History of tonsillectomy ?Z90.89 - Acquired absence of other organs (ICD-10) History of thyroidectomy ?E89.0 - Postprocedural hypothyroidism (ICD-10) S/P hip replacement ?Z96.649 - Presence of unspecified artificial hip joint (ICD-10) Social History What is your current living situation?: I presently have a place to live Problems where you live: no known problems Problems where you live details: NA In the past 12 months, utilities in danger of being shut off: no In past 12 months, lack of transportation kept you from medical appts, meetings, work, or getting things needed for daily living: yes In the past 12 mos, have been you worried that your food would run out before you had money to buy more?: never true In the past 12 mos, the food you bought just didn't last and you didn't have money to buy more?: never true Highest level of school completed/degree received: high school graduate Smoking Status: Former smoker Do you use any of these nicotine containing products: Vaping Products Second hand tobacco smoke exposure: No How often do you have a drink containing alcohol: never How often do you have six or more drinks on one occasion: Never AUDIT-C Alcohol total score: 0 Non-prescribed substance use: denies use Caffeine: Yes (1 Cup Coffee per day) How often does anyone, including family, friends and others, physically hurt you : never How often does anyone, including family, friends and others, insult or talk down to you: never How often does anyone, including family, friends and others, threaten you with harm: never How often does anyone, including family, friends and others, scream or curse at you: never service: No Meds Home Medications and Allergies Allergies Allergy/AdvReac Type Severity Reaction Status Date / Time No Known Drug Allergies Allergy Verified 04/24/24 20:25 Exam Const: Vital Signs, click to edit/add: Vital Signs - 24 hr 04/24/24 16:15 04/24/24 16:30 04/24/24 16:46 Temperature 98.9 F Pulse Rate 112 H Pulse Rate [Right Pulse Oximeter] 109 H Respiratory Rate 20 Blood Pressure Blood Pressure [Ri ght Upper Arm] 110/75 Pulse Oximetry 88 95 88 Oxygen Delivery Me thod Room Air Nasal Cannula Room Air Oxygen Flow Rate 4 04/24/24 17:00 04/24/24 17:20 04/24/24 17:28 Temperature Pulse Rate 111 H 110 H 109 H Pulse Rate [Right Pulse Oximeter] Respiratory Rate Blood Pressure 99/79 Blood Pressure [Ri ght Upper Arm] Pulse Oximetry 95 93 93 Oxygen Delivery Me thod Nasal Cannula Nasal Cannula Nasal Cannula Oxygen Flow Rate 2 2 2 04/24/24 17:30 04/24/24 17:45 04/24/24 17:56 Temperature Pulse Rate 110 H 111 H 111 H Pulse Rate [Right Pulse Oximeter] Respiratory Rate Blood Pressure 109/51 L Blood Pressure [Ri ght Upper Arm] Pulse Oximetry 93 92 93 Oxygen Delivery Me thod Nasal Cannula Nasal Cannula Nasal Cannula Oxygen Flow Rate 2 2 2 04/24/24 18:01 04/24/24 18:15 Temperature Pulse Rate 111 H 110 H Pulse Rate [Right Pulse Oximeter] Respiratory Rate Blood Pressure 105/84 Blood Pressure [Ri ght Upper Arm] Pulse Oximetry 91 93 Oxygen Delivery Me thod Nasal Cannula Nasal Cannula Oxygen Flow Rate 2 2 Hospitalist - H&P: Result Labs Labs: Short CBC 04/24/24 Range/Units 17:19 WBC 17.99 H (4.50-11.00) K/uL Hgb 11.7 L (12.0-16.0) gm/dL Hct 38.7 (33.0-51.0) % Plt Count 208 (140-440) K/uL BMP 04/24/24 17:19 Sodium 131 L Potassium 4.4 Chloride 95 L Carbon Dioxide 29 BUN 26 Creatinine 1.1 Glucose 236 H Calcium 8.9 Cardiac Enzymes 04/24/24 Range/Units 17:19 Troponin I 0.87 H* (0.01-0.04) ng/mL Liver Function 04/24/24 Range/Units 17:19 Total Bilirubin 1.8 H (0.1-1.5) mg/dL AST 44 H (12-35) U/L ALT 27 (4-35) U/L Alkaline Phosphatase 114 (40-150) U/L Albumin 4.0 (3.3-5.0) g/dL Assessment and Plan Assessment and plan (1) Sepsis: Problem comment: -meets criteria with elevated WBC, pulse, lactate, RR. source is likely CAP with the findings of left upper lobe infilitrate -fluid bolus but caution with severe and severely elevated filling pressures -no evidence of shock at this time -lactate is mildly elevated -BC and UC are drawn -Zosyn and Azithromycin ordered -oxygen to keep sats >90% Status: Acute (2) Acute hypoxemic respiratory failure: Problem comment: -d/t CAP (as above) -IS, aerobika (when able), RT, nebs -trend gas -NC Oxygen Status: Acute (3) CAP (community acquired pneumonia): Problem comment: -zosyn and azithromycin -nebs, RT cares Status: Acute (4) Altered mental status: Problem comment: -d/t sepsis. family reports she put a bandaide in her mouth today and sipped from a bowl that was weird for her -family reports baseline mild cognitive decline since Dec 2023 when she moved in with her son and his Status: Acute (5) Elevated troponin: Problem comment: -flat -demand ischemia from sepsis -echo just done -stress exam reviewed, no ischemia -trend -consider cards discussion on sepsis in severe Status: Acute (6) Bilateral pleural effusion: Problem comment: -likely related to CHF from severe valvular dysfunction -d/w cardiology in am; go easy on fluids but treat the sepsis Status: Acute (7) Type 2 diabetes mellitus: Problem comment: -A1C 6.2 -SSI and accuchecks Status: Acute (8) Severe aortic stenosis: Problem comment: referred to valve clinic by general cardiology for 04/28/24 consult for TAVR 1. Small left ventricular chamber size. Left ventricular end-diastolic dimension is 3.6 cm. Mildly-moderately increased left ventricular wall thickness. Normal left ventricular systolic function. Estimated left ventricular ejection fraction is 65-70%. No regional wall motion abnormalities. 2. Normal right ventricular size and systolic function. 3. Severe calcific aortic valve stenosis. Aortic valve systolic mean gradient is 53 mmHg. Aortic valve area by Doppler is 0.51 cm?. Aortic valve dimensionless index is 0.16. Mild aortic insufficiency. 4. Moderate to severe calcific mitral valve stenosis. Mitral valve diastolic mean gradient is 14 mmHg (at a HR of 88 bpm). 5. Severe left atrial enlargement. 6. Findings consistent with severely increased left ventricular filling pressure. 7. Estimated right ventricular systolic pressure is moderately increased at 53 mmHg. 8. Small posterior pericardial effusion. As compared to the [facility] echo from 2020, the mean AV gradient has increased from 11 mm Hg and the mean MV gradient has increased from 10 mm Hg. Estimated EF: 65-70% 04/14/24 MPI: FINAL CONCLUSIONS Normal pharmacologic stress perfusion imaging study. No significant ischemia was suggested by this study. Normal left ventricular size and systolic function with a calculated LVEF of 53%. Pharmacologic stress EKG is negative for ischemia. No previous study for comparison Status: Acute (9) Severe mitral valve stenosis: Problem comment: referred to valve clinic by general cardiology for 04/28/24 Status: Acute (10) Acute DVT (deep venous thrombosis): Problem comment: -right leg is swollen and warm; +u/s in ED. family knew nothing of swelling or pain. -xarelto 15mg BID x 21 days initiated Status: Acute (11) Morbid obesity: Status: Acute (12) Supracondylar fracture of humerus: Problem comment: -supracondylar fracture of the distal left humerus -fell in early March -there was ORIF planned but cardiology clearance was needed and then ortho decided healing was going well and no ORIF ([facility] managing) -True Kapoor MD (CARDS) 04/16/24 12:40 PM Reviewed patient's Nuclear which showed preserved LV function and no significant ischemia. Patient's anesthesia and surgical team should be updated regarding the severe double valve disease noted on her Echo: both severe mitral stenosis and severe aortic stenosis. Would recommend cardiac anesthesia team involvement. Urgency of her ORIF elbow surgery noted for tomorrow. We will see patient back in valve clinic for her valve workup once her urgent fracture surgery is completed. Status: Acute (13) Polycythemia vera: Status: Acute (14) Elevated TSH: Status: Acute
[2024-04-24 20:24] LABS: Troponin I* 0.94 ng/mL (0.01-0.04)
[2024-04-24 20:25] LABS: Appearance Urine Clear (Clear); Bilirubin Urine Negative (Negative); Blood Urine 2+ (Negative); Glucose Urine Negative (Negative); Ketones Urine Negative (Negative); Leukocyte Esterase Urine Negative (Negative); Nitrite Urine Negative (Negative); Protein Urine 2+ (Negative)
[2024-04-24 21:04] LABS: INR 1.14 (0.91-1.10); Prothrombin Time 15.4 Seconds
[2024-04-24 21:22] LABS: Iron* 29 ug/dL (37-170)
[2024-04-24 21:30] LABS: Percent Iron Saturation 8 % (20-50); Total Iron Binding Capacity 384 ug/dL (265-497)
[2024-04-24 21:55] LABS: C Reactive Protein* 20.8 mg/dL (0.5-1.0)
[2024-04-24] MEDS: 0.9 % SODIUM CHLORIDE 1000 ml 1,000 ML 125 ML IV (21:58)
[2024-04-24] MEDS: PIPERACILLIN/TAZOBACTAM 3.375 GM in 0.9 % SODIUM CHLORIDE Mini-bag 100 ML IVPB (21:58)
[2024-04-24] MEDS: MAGNESIUM IV 2 GM/50 ML PIGGYBACK IVPB (22:03)
[2024-04-24] MEDS: RIVAROXABAN 10 MG TABLET 15 MG PO (22:14)
[2024-04-24] MEDS: ACETAMINOPHEN 325 MG TABLET 975 MG PO (22:16)
[2024-04-24] MEDS: SODIUM CHLORIDE 0.9 % (FLUSH) 10 ML SYRINGE 5 ML IVF (22:17)
[2024-04-24] MEDS: INSULIN ASPART 100 UNIT/ML SUBCUT (22:23)
[2024-04-24 22:28] LABS: Hemoglobin A1C* 8.8 % (0-5.6)
[2024-04-24 22:40] LABS: Creatine Kinase* 830 U/L (41-117)
[2024-04-24] MEDS: METOPROLOL TARTRATE 1 MG/ML inj 2.5 MG IVP (22:56)
[2024-04-24 22:57] LABS: Free T4 Free Thyroxine* 0.44 ng/dL (0.70-1.85)
[2024-04-24 22:57] LABS: Procalcitonin* 0.64 ng/mL (<0.50)
[2024-04-24] MEDS: OXYCODONE 5 MG TABLET PO (23:07)
[2024-04-24] MEDS: AZITHROMYCIN 500 MG in 0.9 % SODIUM CHLORIDE 250 ml 250 ML 255 MG IVPB (23:43)
[2024-04-25] VITALS (14 sets, daily range): BP systolic 65–126; BP diastolic 40–55; PULSE 84–90; RESP 16–18; TEMP 36.7–37.2; O2SAT 92–97
[2024-04-25 00:08] LABS: Color Urine Yellow (Yellow); pH Urine 5.5 (5.0-8.5)
[2024-04-25 00:09] LABS: Bacteria Urine Few; RBC Urine 0-2 (0-2); Squamous Epithelial Cell Urine Few (None-Few); WBC Urine 0-2 (0-5)
--- NOTE | 2024-04-25 01:42 | PC.NURSE ---
Dr bosch RN not to give Nebs this night for fear it might stress the Pt heart.
[2024-04-25 02:09] LABS: HCO3 VBG 27 mmol/L (21-28); PCO2 VBG 43 mmHG (40-50); PO2 VBG 46.9 mmHG (25-47); pH VBG 7.416 (7.32-7.43)
--- NOTE | 2024-04-25 02:28 | PC.NURSE ---
@ 0215. Pt BP was 81/41. Dr called. Ordered Sepsis dose of Vanco and said Pharmacy would give us the dose. Continue NS @ 125. also told pt is putting out less urine 100 cc over 4 hours. Pharmacy called to verify dosage.
[2024-04-25 02:43] LABS: Troponin I* 0.81 ng/mL (0.01-0.04)
--- NOTE | 2024-04-25 02:56 | PC.NURSE ---
0240 Asked by M/S nurses to assess pt secondary to declining status IE B/P decreased and U/O. Noted 81/41. Pt with audible wheezing. Alert and noted pt is DNR/DNI. Asked pt if she would want other things done to help be better as transfer to other facility where they can offer a higher level of care. Central line and pressors to improve B/P and help with infection. Dr Garay notified of the above. [facility] called as they do have beds available if needs tx
[2024-04-25] MEDS: ACETAMINOPHEN 325 MG TABLET 975 MG PO (03:22)
[2024-04-25] MEDS: PIPERACILLIN/TAZOBACTAM 3.375 GM in 0.9 % SODIUM CHLORIDE Mini-bag 100 ML IVPB (03:25)
--- NOTE | 2024-04-25 03:38 | PC.NURSE ---
@ 0200 Pt BP dropped to 81/41. Tele health called. House sup and Charge notified. [facility], pt stated she would like to be transferred if there was something more to be done with heart. Pt still requested DNR/DNI status. by 0300 Pt BP brina to 87/55. [facility] spoke with pt and examined pt. Pt remained Afebrile, HR 90, O2 low to mid 90s on 2L NC. BG was taken 198. Pt mentation seems to have improved since admission. Pt urine output is declining. Pt left arm is showing compressed edema in the cast. Awaiting further instruction from regarding transfer.
--- NOTE | 2024-04-25 04:19 | PM.DS1 ---
DS: Providers Provider Time Seen by Provider: 03:09 Date Seen: 04/25/24 Date of admission: 04/24/24 21:03 Primary care physician: Not a Local Provider Admitting Clinician: Margot Dukes MD Consults: 04/24/24 21:03 Consult to Occupational Therapy [CONS] Routine Comment: Reason(s) for OT Consult:: Evaluate and Treat Any Restrictions?:: No Restrictions Consult to Physical Therapy [CONS] Routine Comment: Reason(s) for PT Consult:: Evaluate and Treat Any Restrictions?:: No Restrictions Consult to Cardiology Physician Assistant [CONS] Routine Comment: Reason for Consult:: Social Service Consult Attending Physician on discharge: Margot Dukes MD Date of Discharge: 04/25/24 DS: Diagnosis Discharge Diagnosis (1) Acute hypoxemic respiratory failure: Status: Acute Problem details: -d/t CAP (as above) -IS, aerobika (when able), RT, nebs -trend gas -NC Oxygen (2) Sepsis: Status: Acute Problem details: -meets criteria with elevated WBC, pulse, lactate, RR. source is likely CAP with the findings of left upper lobe infilitrate -fluid bolus but caution with severe and severely elevated filling pressures -no evidence of shock at this time -lactate is mildly elevated -BC and UC are drawn -Zosyn and Azithromycin ordered -oxygen to keep sats >90% (3) CAP (community acquired pneumonia): Status: Acute Problem details: -zosyn and azithromycin -nebs, RT cares (4) Elevated troponin: Status: Acute Problem details: -flat -demand ischemia from sepsis -echo just done -stress exam reviewed, no ischemia -trend -consider cards discussion on sepsis in severe (5) Acute DVT (deep venous thrombosis): Status: Acute Problem details: -right leg is swollen and warm; +u/s in ED. family knew nothing of swelling or pain. -xarelto 15mg BID x 21 days initiated (6) Severe aortic stenosis: Status: Acute Problem details: referred to valve clinic by general cardiology for 04/28/24 consult for TAVR 1. Small left ventricular chamber size. Left ventricular end-diastolic dimension is 3.6 cm. Mildly-moderately increased left ventricular wall thickness. Normal left ventricular systolic function. Estimated left ventricular ejection fraction is 65-70%. No regional wall motion abnormalities. 2. Normal right ventricular size and systolic function. 3. Severe calcific aortic valve stenosis. Aortic valve systolic mean gradient is 53 mmHg. Aortic valve area by Doppler is 0.51 cm?. Aortic valve dimensionless index is 0.16. Mild aortic insufficiency. 4. Moderate to severe calcific mitral valve stenosis. Mitral valve diastolic mean gradient is 14 mmHg (at a HR of 88 bpm). 5. Severe left atrial enlargement. 6. Findings consistent with severely increased left ventricular filling pressure. 7. Estimated right ventricular systolic pressure is moderately increased at 53 mmHg. 8. Small posterior pericardial effusion. As compared to the [facility] echo from 2020, the mean AV gradient has increased from 11 mm Hg and the mean MV gradient has increased from 10 mm Hg. Estimated EF: 65-70% 04/14/24 MPI: FINAL CONCLUSIONS Normal pharmacologic stress perfusion imaging study. No significant ischemia was suggested by this study. Normal left ventricular size and systolic function with a calculated LVEF of 53%. Pharmacologic stress EKG is negative for ischemia. No previous study for comparison (7) Severe mitral valve stenosis: Status: Acute Problem details: referred to valve clinic by general cardiology for 04/28/24 DS: Summary Hospital Course Hospital Course: HPI: 63 y.o WF with a recent hx of a supracondylar fx of the left elbow and recent dx of severe was found down by family on the day of admission ([employer]). She was likely on the floor between 1-3 hours. She had been in bed for the two days [employer]. Nonspecific weakness and fatigue. The son and DIL she lives with, kept urging her to go to the hospital and she refused. She apparently has had low potassium in the past and they thought this was the issue. She has baseline cognitive decline but she seemed more encephlopathic in the last two days. No cough, fever. Just weak. No complaint of leg pain until EMS arrived on the day of admission. She was hypoxic (EMS 78-85%) and was yelling out b/c of right ankle pain. She fell in early march (03/24/24) and she broke her left elbow. [place] [facility] planned an ORIF but apparently anesthesia cancelled surgery related to a new heart murmur. subsequently seen by cards: echo shows severe , severe MS. severe elevation in filling pressures. However she passed her stress exam. She needs a TAVR. ortho decided the healing was good enough and ORIF was cancelled (according to son). valve clinic appt is 04/28/24 ER COURSE: imaging, fluid bolus, labs. Hosp med asked to admit for sepsis, CAP, acute DVT with weakness/AMS. She was started on antibiotics of Zosyn and Azithromyacin and was also initiated on Eliquis for newly discovered DVT. She was admitted to the intensive care unit and initially was noted to have a decreasing troponin, decreasing lactic acid and her heart rate decreased from its tachycardia. These all look to be better except her blood pressure which continue to decrease despite IV fluid administration. With her decreasing urine output, decreasing blood pressure and known severe aortic and mitral stenosis, fluid status balance with her acute pneumonia and newly developed DVT became more acute than could be handled at our hospital. It was initially decided that she did not want to be transferred, but upon her worsening condition, further discussion was had with Shakila and she now decided that she would like to be transferred for ongoing care including critical care. I did speak with Dr. York [facility] and Shakila has been accepted to the ICU for ongoing evaluation and treatment for her complicated medical condition. Shakila will be transferred in stable condition to a higher level of care. I do thank you for allowing us to participate in this patient's care. If you should have any further concerns or questions, please do not hesitate to call. Status at Discharge Functional status at discharge: bed bound Overall status at discharge: patient is not back to baseline Time Spent with Patient Time attestation: Total time spent providing and/or coordinating discharge services: Time spent: Greater than 30 minutes Exam Narrative: Exam Narrative: GENERAL: vital signs reviewed, well developed and nourished, in minimal distress HEENT: Extraocular movements are grossly within normal limits and oral mucosa is moist. She does have NC oxygen present at 2L HEART: Regular rate and rhythm with a 3/6 systolic murmur noted. LUNGS: Decreased air movement at the bases and also the left upper lobe otherwise, clear to auscultation bilaterally. ABDOMEN: Soft with positive bowel sounds noted. EXTREMITIES: +2 pitting edema is noted bilaterally with right greater than left edema noted with her newly diagnosed DVT SKIN: Observed warm and dry with color normal NEURO: Alert, awake and oriented ?3. Answers all questions appropriately. No focal neuro deficits are noted. PSYCH: Affect normal Const: Vital Signs, click to edit/add: Vital Signs - 24 hr 04/24/24 16:15 04/24/24 16:30 04/24/24 16:46 Temperature 98.9 F Pulse Rate 112 H Pulse Rate [Right Dorsalis Pedis] Pulse Rate [Right Pulse Oximeter] 109 H Respiratory Rate 20 Blood Pressure Blood Pressure [Le ft Calf] Blood Pressure [Ri ght Upper Arm] 110/75 Pulse Oximetry 88 95 88 Oxygen Delivery Me thod Room Air Nasal Cannula Room Air Oxygen Flow Rate 4 04/24/24 17:00 04/24/24 17:20 04/24/24 17:28 Temperature Pulse Rate 111 H 110 H 109 H Pulse Rate [Right Dorsalis Pedis] Pulse Rate [Right Pulse Oximeter] Respiratory Rate Blood Pressure 99/79 Blood Pressure [Le ft Calf] Blood Pressure [Ri ght Upper Arm] Pulse Oximetry 95 93 93 Oxygen Delivery Me thod Nasal Cannula Nasal Cannula Nasal Cannula Oxygen Flow Rate 2 2 2 04/24/24 17:30 04/24/24 17:45 04/24/24 17:56 Temperature Pulse Rate 110 H 111 H 111 H Pulse Rate [Right Dorsalis Pedis] Pulse Rate [Right Pulse Oximeter] Respiratory Rate Blood Pressure 109/51 L Blood Pressure [Le ft Calf] Blood Pressure [Ri ght Upper Arm] Pulse Oximetry 93 92 93 Oxygen Delivery Me thod Nasal Cannula Nasal Cannula Nasal Cannula Oxygen Flow Rate 2 2 2 04/24/24 18:01 04/24/24 18:15 04/24/24 19:02 Temperature Pulse Rate 111 H 110 H 110 H Pulse Rate [Right Dorsalis Pedis] Pulse Rate [Right Pulse Oximeter] Respiratory Rate Blood Pressure 105/84 128/94 H Blood Pressure [Le ft Calf] Blood Pressure [Ri ght Upper Arm] Pulse Oximetry 91 93 93 Oxygen Delivery Me thod Nasal Cannula Nasal Cannula Nasal Cannula Oxygen Flow Rate 2 2 2 04/24/24 19:30 04/24/24 20:07 04/24/24 20:15 Temperature Pulse Rate 109 H 108 H Pulse Rate [Right Dorsalis Pedis] Pulse Rate [Right Pulse Oximeter] Respiratory Rate 28 H Blood Pressure 107/57 L Blood Pressure [Le ft Calf] Blood Pressure [Ri ght Upper Arm] Pulse Oximetry 93 90 Oxygen Delivery Me thod Nasal Cannula Nasal Cannula Oxygen Flow Rate 2 2 04/24/24 20:15 04/24/24 21:17 04/24/24 21:19 Temperature 98.7 F Pulse Rate 108 H Pulse Rate [Right Dorsalis Pedis] 107 H Pulse Rate [Right Pulse Oximeter] Respiratory Rate 18 18 Blood Pressure Blood Pressure [Le ft Calf] 115/64 Blood Pressure [Ri ght Upper Arm] Pulse Oximetry 92 92 92 Oxygen Delivery Me thod Nasal Cannula Nasal Cannula Nasal Cannula Oxygen Flow Rate 2 2 2 04/24/24 21:20 04/24/24 21:21 04/24/24 21:21 Temperature 98.7 F Pulse Rate Pulse Rate [Right Dorsalis Pedis] 107 H Pulse Rate [Right Pulse Oximeter] Respiratory Rate 18 18 Blood Pressure Blood Pressure [Le ft Calf] 115/64 Blood Pressure [Ri ght Upper Arm] Pulse Oximetry 92 92 92 Oxygen Delivery Me thod Nasal Cannula Nasal Cannula Oxygen Flow Rate 2 2 04/24/24 21:22 04/24/24 23:04 04/24/24 23:29 Temperature 98.7 F 98.3 F Pulse Rate 106 H Pulse Rate [Right Dorsalis Pedis] 96 Pulse Rate [Right Pulse Oximeter] 109 H Respiratory Rate 18 18 Blood Pressure Blood Pressure [Le ft Calf] 103/63 Blood Pressure [Ri ght Upper Arm] 110/75 Pulse Oximetry 94 Oxygen Delivery Me thod Room Air Oxygen Flow Rate 04/24/24 23:31 04/24/24 23:53 04/25/24 02:05 Temperature 98.3 F 98.8 F Pulse Rate Pulse Rate [Right Dorsalis Pedis] 96 96 90 Pulse Rate [Right Pulse Oximeter] Respiratory Rate 18 18 16 Blood Pressure Blood Pressure [Le ft Calf] 103/63 81/41 L Blood Pressure [Ri ght Upper Arm] Pulse Oximetry 94 92 Oxygen Delivery Me thod Room Air Nasal Cannula Oxygen Flow Rate 2 2 04/25/24 02:55 04/25/24 03:22 04/25/24 03:48 Temperature 98.8 F 98.8 F Pulse Rate Pulse Rate [Right Dorsalis Pedis] 90 90 Pulse Rate [Right Pulse Oximeter] Respiratory Rate 18 18 Blood Pressure Blood Pressure [Le ft Calf] 87/55 L Blood Pressure [Ri ght Upper Arm] Pulse Oximetry 95 Oxygen Delivery Me thod Nasal Cannula Oxygen Flow Rate 2 04/25/24 03:59 04/25/24 04:01 Temperature 98.9 F 98.9 F Pulse Rate Pulse Rate [Right Dorsalis Pedis] 87 Pulse Rate [Right Pulse Oximeter] Respiratory Rate 16 Blood Pressure Blood Pressure [Le ft Calf] 79/51 L Blood Pressure [Ri ght Upper Arm] Pulse Oximetry 95 Oxygen Delivery Me thod OxyMask Oxygen Flow Rate 2 Documenting provider has reviewed patient's vital signs: yes DS: Data Data Completed and Pending Labs on day of discharge: Labs from last 24 hours 04/25/24 04/24/24 04/24/24 02:05 22:24 21:46 WBC RBC Hgb Hct MCV MCH MCHC RDW Coeff of Jorge Luis Plt Count Neut % (Auto) Lymph % (Auto) [place] % (Auto) Eos % (Auto) Baso % (Auto) Neut # (Auto) Lymph # (Auto) [place] # (Auto) Eos # (Auto) Baso # (Auto) Abs Immat Gran (auto) Imm/Tot Granulo (auto) INR D-Dimer Quant (PE/DVT) VBG pH 7.416 VBG pCO2 43 VBG pO2 46.9 VBG HCO3 27 Sodium Potassium Chloride Carbon Dioxide Anion Gap BUN Creatinine Estimated GFR Glucose Hemoglobin A1c Lactate 2.0 H Calcium Magnesium Iron TIBC % Saturation Total Bilirubin AST ALT Alkaline Phosphatase Total Creatine Kinase Troponin I 0.81 H* C-Reactive Protein NT-Pro-B Natriuret Pep Total Protein Albumin Procalcitonin TSH Free T4 Prolactin Baseline Urine Color Urine Appearance Urine pH Ur Specific [place] Urine Protein Urine Glucose (UA) Urine Ketones Urine Blood Urine Nitrite Urine Bilirubin Urine Urobilinogen Ur Leukocyte Esterase Urine RBC Urine WBC Ur Squamous Epith Cells Urine Bacteria SARS-CoV-2 (PCR) Influenza Type A (PCR) Influenza Type B (PCR) RSV (PCR) Lab Acknowledgement Test Added Test Added 04/24/24 04/24/24 04/24/24 21:25 20:28 20:15 WBC RBC Hgb Hct MCV MCH MCHC RDW Coeff of Jorge Luis Plt Count Neut % (Auto) Lymph % (Auto) [place] % (Auto) Eos % (Auto) Baso % (Auto) Neut # (Auto) Lymph # (Auto) [place] # (Auto) Eos # (Auto) Baso # (Auto) Abs Immat Gran (auto) Imm/Tot Granulo (auto) INR D-Dimer Quant (PE/DVT) VBG pH VBG pCO2 VBG pO2 VBG HCO3 Sodium Potassium Chloride Carbon Dioxide Anion Gap BUN Creatinine Estimated GFR Glucose Hemoglobin A1c Lactate 3.0 H Calcium Magnesium Iron TIBC % Saturation Total Bilirubin AST ALT Alkaline Phosphatase Total Creatine Kinase 830 H Troponin I C-Reactive Protein NT-Pro-B Natriuret Pep Total Protein Albumin Procalcitonin 0.64 H TSH Free T4 Prolactin Baseline Urine Color Yellow Urine Appearance Clear Urine pH 5.5 Ur Specific [place] 1.020 Urine Protein 2+ A Urine Glucose (UA) Negative Urine Ketones Negative Urine Blood 2+ A Urine Nitrite Negative Urine Bilirubin Negative Urine Urobilinogen 1.0 Ur Leukocyte Esterase Negative Urine RBC 0-2 Urine WBC 0-2 Ur Squamous Epith Cells Few Urine Bacteria Few A SARS-CoV-2 (PCR) Influenza Type A (PCR) Influenza Type B (PCR) RSV (PCR) Lab Acknowledgement Test Added 04/24/24 04/24/24 04/24/24 19:43 19:35 17:19 WBC 17.99 H RBC 5.11 Hgb 11.7 L Hct 38.7 MCV 76 L MCH 23 L MCHC 30 L RDW Coeff of Jorge Luis 18.5 H Plt Count 208 Neut % (Auto) 92.4 H Lymph % (Auto) 3.1 L [place] % (Auto) 3.9 Eos % (Auto) 0.0 Baso % (Auto) 0.1 Neut # (Auto) 16.60 H Lymph # (Auto) 0.60 L [place] # (Auto) 0.70 Eos # (Auto) 0.00 Baso # (Auto) 0.00 Abs Immat Gran (auto) 0.10 Imm/Tot Granulo (auto) 0.5 INR 1.14 H D-Dimer Quant (PE/DVT) 2.60 H VBG pH 7.420 VBG pCO2 44 VBG pO2 < 30.1 VBG HCO3 29 H Sodium 131 L Potassium 4.4 Chloride 95 L Carbon Dioxide 29 Anion Gap 7 BUN 26 Creatinine 1.1 Estimated GFR 56 Glucose 236 H Hemoglobin A1c 8.8 H Lactate 2.6 H 3.0 H Calcium 8.9 Magnesium 1.5 Iron 29 L TIBC 384 % Saturation 8 L Total Bilirubin 1.8 H AST 44 H ALT 27 Alkaline Phosphatase 114 Total Creatine Kinase Troponin I 0.94 H* 0.87 H* C-Reactive Protein 20.8 H NT-Pro-B Natriuret Pep 8400 Total Protein 8.0 Albumin 4.0 Procalcitonin TSH 16.600 H Free T4 0.44 L Prolactin Baseline Pending Urine Color Urine Appearance Urine pH Ur Specific [place] Urine Protein Urine Glucose (UA) Urine Ketones Urine Blood Urine Nitrite Urine Bilirubin Urine Urobilinogen Ur Leukocyte Esterase Urine RBC Urine WBC Ur Squamous Epith Cells Urine Bacteria SARS-CoV-2 (PCR) Influenza Type A (PCR) Influenza Type B (PCR) RSV (PCR) Lab Acknowledgement 04/24/24 16:49 WBC RBC Hgb Hct MCV MCH MCHC RDW Coeff of Jorge Luis Plt Count Neut % (Auto) Lymph % (Auto) [place] % (Auto) Eos % (Auto) Baso % (Auto) Neut # (Auto) Lymph # (Auto) [place] # (Auto) Eos # (Auto) Baso # (Auto) Abs Immat Gran (auto) Imm/Tot Granulo (auto) INR D-Dimer Quant (PE/DVT) VBG pH VBG pCO2 VBG pO2 VBG HCO3 Sodium Potassium Chloride Carbon Dioxide Anion Gap BUN Creatinine Estimated GFR Glucose Hemoglobin A1c Lactate Calcium Magnesium Iron TIBC % Saturation Total Bilirubin AST ALT Alkaline Phosphatase Total Creatine Kinase Troponin I C-Reactive Protein NT-Pro-B Natriuret Pep Total Protein Albumin Procalcitonin TSH Free T4 Prolactin Baseline Urine Color Urine Appearance Urine pH Ur Specific [place] Urine Protein Urine Glucose (UA) Urine Ketones Urine Blood Urine Nitrite Urine Bilirubin Urine Urobilinogen Ur Leukocyte Esterase Urine RBC Urine WBC Ur Squamous Epith Cells Urine Bacteria SARS-CoV-2 (PCR) Negative SARS-CoV-2 Influenza Type A (PCR) Negative PCR FLU A Influenza Type B (PCR) Negative PCR FLU B RSV (PCR) Negative PCR RSV Lab Acknowledgement Discharge Plan Discharge Disposition: [facility] Hospital Discharge Location: [facility] Date of Admission: 04/24/24 21:03 Attending Provider on Discharge: Konrad Allen Primary Care Provider: Provider,Not a Local Discharge Orders: Transfer of Care to Other Hospital (ORDER); Ordered 04/25/24 Ordered By: Konrad Allen Oxygen: Yes Oxygen Delivery Method: Nasal Cannula Oxygen Flow Rate: 2L Urinary Catheter: Yes Drips/Lines: IV NS @ 125 Services not available here: Cardiology Evaluation for Valvular Stenosis
[2024-04-25] MEDS: 0.9 % SODIUM CHLORIDE 1000 ml 1,000 ML 125 ML IV (08:06)
--- NOTE | 2024-04-25 09:14 | PC.NURSE ---
RECEIVED REPORT AND INITIAL BP'S 80'S/40'S. DR. MONTOYA AWARE AND WAITING FOR EMS TO TRANSFER TO [place]. PATIENT TRANSFERRED TO [facility] AND BP'S NOTED TO BE 60'S/40'S. DR. MONTOYA IN ROOM AND ORDER OBTAINED TO START LEVOPHED. LEVOPHED INITIATED AND BP CHECK AFTER 5 MINUTES 120'S/50-70'S. PATIENT TRANSFERRED VIA EMS TO [place] AT THAT TIME AND LESTER PATHAK AT [place] UPDATED WITH NEW REPORT.
== END 2024-04-25 08:19 | disposition short-term general hospital (02) | DRG 871 ==
LOC: ED 20:27 → MEDSURG 20:40
PROVIDERS: Admitting Provider Family Medicine; Emergency Provider Student in an Organized Health Care Education/Training Program; Visit Provider Family Medicine
DX: A41.9 Sepsis, unspecified organism (principal); I50.23 Acute on chronic systolic (congestive) heart failure; J18.9 Pneumonia, unspecified organism; J96.01 Acute respiratory failure with hypoxia; I24.89 Other forms of acute ischemic heart disease; I82.451 Acute embolism and thrombosis of right peroneal vein; I11.0 Hypertensive heart disease with heart failure; I08.0 Rheumatic disorders of both mitral and aortic valves; C73 Malignant neoplasm of thyroid gland; E11.9 Type 2 diabetes mellitus without complications; E66.01 Morbid (severe) obesity due to excess calories; S42.412D Displaced simple supracondylar fracture without intercondylar fracture of left humerus, subsequent encounter for fracture with routine healing; D45 Polycythemia vera
CPT/HCPCS: 36415; 70450; 71275; 73610; 73630; 80053; 81001; 82550; 82803; 82962; 83036; 83540; 83550; 83605; 83735; 83880; 84145; 84146; 84439; 84443; 84484; 85025; 85379; 85610; 86140; 87040; 87086; 87631; 93005; 93971; 94761; 99284; 99285; A9270; J0456; J2543; J3475; J7030; J7050; Q9967

== ENCOUNTER 2024-04-25 07:35 | Outpatient (CLI) | payer MEDICARE, SELFPAY | END 2024-04-25 07:36 | disposition home or self-care (01) | LOC: AMB 05-05 20:29 | PROVIDERS: Visit Provider Family Medicine | DX: A41.9 Sepsis, unspecified organism (principal); I50.21 Acute systolic (congestive) heart failure; J18.9 Pneumonia, unspecified organism; I35.0 Nonrheumatic aortic (valve) stenosis | CPT/HCPCS: A0425; A0434 ==